=== PATIENT | female | born 1990 | race Caucasian/White ===

== ENCOUNTER 2018-10-25 16:45 | Inpatient (IN) ==
[2018-10-25] MEDS ORDERED: BETAMETHASONE ACETATE,SOD PHOS 6 MG/ML VIAL IM ONE (17:31)
[2018-10-25] MEDS: RINGER'S SOLUTION,LACTATED 1,000 ML IV PRN ×2 (17:45→19:30)
[2018-10-25] MEDS ORDERED: OXYTOCIN 20 UNITS in RINGER'S SOLUTION,LACTATED 1,000 ML IV ONE (19:14)
[2018-10-25] MEDS ORDERED: ceFAZolin SODIUM/DEXTROSE,ISO 2 GM/50 ML BAG IV ONE (19:14)
--- NOTE | 2018-10-25 20:10 | HP ---
Chief Complaint - Chief Complaint Date of Service: 10/25/18 Time of Service: 20:04 Chief Complaint: contractions History of Present Illness: 28 yo at 36 1/7 wks presents to L&D for evaluation of elevated blood pressures to rule out chronic hypertension with superimposed preeclampsia. Her blood pressures normalized and labs WNL but was noted to have contractions every 5 minutes. Contractions increased in frequency and intensity and cervix continued to change. Because fetus is ed breech will proceed with primary c/s. Medical History (Last Reviewed 10/25/18 @ 20:09 by Roque Pink DO) Body piercing Fructose malabsorption Onset Date: ~2015 Generalized anxiety disorder Onset Date: ~2011 Tx'd with Lexapro & Xanex prn. Pt d/c both medications with + UPT 04/20/18. Hypertension Onset Date: ~2015 Initially on Lisinopril but d/c due to cough. Then Irbesartan x1 yr. Pt d/c medication with + UPT. 04/20/18 Hypothyroidism Onset Date: ~10/2017 Put on thyroid medication-PCP d/c medication with +UPT (Dr. Perez) 04/20/18 Intestinal polyps Onset Date: ~2015 Pt is to have colonoscopies q 5 yrs. Strong hx with paternal aunts and uncles. Obesity Tattoos Wears glasses Abnormal Pap smear of cervix Onset Date: ~2007 Negative colpo Asthma Onset Date: ~2002 Sports induced asthma. Breast lump Onset Date: ~2013 Bilateral lumps-Fibrous tissue build up d/t the Implanon. Negative mammogram & u.s History of HIDA scan Onset Date: ~2015 Sinus arrhythmia Onset Date: ~2009 Pt states she "grew out of it." Doctors never felt she needed a work up. Surgical History: Surgical History (Last Reviewed 10/25/18 @ 20:09 by Roque Pink DO) History of colonoscopy Onset Date: ~2015 Benign polyps. Strong paternal history of intestinal polyps. History of colposcopy Onset Date: ~2007 Negative Jaw Surgery Onset Date: ~2011 Internal fixation with multiple screws and plates Normal endoscopy Onset Date: ~2015 Family History: Family History (Last Reviewed 10/25/18 @ 20:10 by Roque Pink DO) Mother Chronic Bronchial Asthma Chronic UTI Hypertension GI Issues Father Hypercholesterolemia Grandfather Hypertension Grandmother COD-Aspiration Pneumonia Grandfather Medical history unknown Grandmother COD Related to the Gastric System Other Intestinal polyps Social History: Preferred Language Bulgarian Do you have any sikhism or No cultural preference? Smoking Status Former smoker (Last Updated 10/25/18 @ 16:29 by Roque Pink DO) No Social History Section defined Review Of Systems (GEN) - Review of Systems Generalized/Overall Review: Present: No Symptoms Reported EENTM: Present: No Symptoms Reported Respiratory: Present: No Symptoms Reported Cardiac: Present: No Symptoms Reported Abdominal: Present: Other - contractions Genitourinary: Present: No Symptoms Reported Musculoskeletal: Present: No Symptoms Reported Neurological: Present: No Symptoms Reported Skin: Present: No Symptoms Reported Endocrine: Present: No Symptoms Reported Allergies/Adverse Reactions: Allergies Allergy/AdvReac Type Severity Reaction Status Date / Time lisinopril Allergy Intermediate Cough Verified 10/25/18 15:53 adhesive tape Allergy rash Verified 10/25/18 15:53 Home Medications: HOME MEDICATIONS doxylamine succinate 25 mg tablet See Rx Instructions PO .in the a.m. PRN tab 04/20/18 [Last Taken 10/24/18 21:00] vitamin,calcium,tbktmxml-nyfn-taqcp acid tablet 1 tab PO DAILY 04/20/18 [Last Taken 10/24/18 07:00] ranitidine 150 mg capsule 150 mg PO DAILY 04/20/18 [Last Taken 10/25/18 07:00] aspirin 81 mg tablet,delayed release 81 mg PO DAILY 05/18/18 [Last Taken 10/24/18 21:00] Exam - Exam Vital Signs: Vital Signs - Last Taken Temp 36.6 C 10/25/18 19:51 Pulse 101 H 10/25/18 19:51 Resp 20 10/25/18 19:51 BP 138/86 10/25/18 19:51 Pulse Ox 99 10/25/18 19:51 Constitutional: Present: Alert, Oriented x3, Cooperative ENT Exam: Present: hearing grossly normal Back Exam: Present: no CVA tenderness Breasts: Present: Exam deferred Respiratory: Present: lungs clear, no respiratory distress Cardiovascular/Chest: Present: regular rate, rhythm Abdomen: Present: nontender, no rebound tenderness, other - gravid /Rectal: Present: Other - 2-3/50/-2 Extremity: Present: no pedal edema, no calf tenderness Skin Exam: Present: normal color, warm/dry, no cyanosis Neurologic: Present: alert, normal mood/affect, oriented x 3 Appearance: Present: appropriate appearance, appropriate insight Eye contact: Present: cooperative, good eye contact, normal speech Thoughts: Present: normal thought pattern Diagnostic Studies: NST reactive CBC, CMP, and Urine prot/cr ratio not showing from computer on this note, but WNL. Assessment/Plan - Assessment/Plan (1) labor Assessment: Admit for primary LTCS due to PTL with breech presentation. R/b/a discussed with patient and partner. All questions answered. Will proceed with surgery as planned. Problem: Acute Qualifiers: labor trimester: third trimester labor delivery status: with delivery in third trimester Fetus number: single or unspecified fetus Qualified Code(s): O60.14X0 - labor third trimester with delivery third trimester, not applicable or unspecified (2) Breech presentation Problem: Acute Qualifiers: Fetus number: single or unspecified fetus Qualified Code(s): O32.1XX0 - Maternal care for breech presentation, not applicable or unspecified (3) Anxiety Problem: Chronic (4) Hypothyroid Problem: Chronic Qualifiers: Hypothyroidism type: unspecified Qualified Code(s): E03.9 - Hypothyroidism, unspecified (5) Asthma complicating , antepartum Problem: Inactive (6) Chronic hypertension during Problem: Chronic
--- NOTE | 2018-10-25 20:48 | ANES ---
Anesthesia Pre Procedure Eval Vitals/Labs: Last Vital Signs Temp 36.6 C 10/25/18 19:51 Pulse 101 H 10/25/18 19:51 Resp 20 10/25/18 19:51 BP 138/86 10/25/18 19:51 Pulse Ox 99 10/25/18 19:51 HOME MEDICATIONS doxylamine succinate 25 mg tablet See Rx Instructions PO .in the a.m. PRN tab 04/20/18 [Last Taken 10/24/18 21:00] vitamin,calcium,ijpocdyn-bjsb-shycd acid tablet 1 tab PO DAILY 04/20/18 [Last Taken 10/24/18 07:00] ranitidine 150 mg capsule 150 mg PO DAILY 04/20/18 [Last Taken 10/25/18 07:00] aspirin 81 mg tablet,delayed release 81 mg PO DAILY 05/18/18 [Last Taken 10/24/18 21:00] Allergies/Adverse Reactions: Allergies Allergy/AdvReac Type Severity Reaction Status Date / Time lisinopril Allergy Intermediate Cough Verified 10/25/18 15:53 adhesive tape Allergy rash Verified 10/25/18 15:53 - Planned Procedure Planned Procedure: Medication List Reviewed:: Yes Allergies Verified: Yes Medical History (Last Reviewed 10/25/18 @ 20:46 by Brett Porter CRNA) Body piercing Fructose malabsorption Onset Date: ~2015 Generalized anxiety disorder Onset Date: ~2011 Tx'd with Lexapro & Xanex prn. Pt d/c both medications with + UPT 04/20/18. Hypertension Onset Date: ~2015 Initially on Lisinopril but d/c due to cough. Then Irbesartan x1 yr. Pt d/c medication with + UPT. 04/20/18 Hypothyroidism Onset Date: ~10/2017 Put on thyroid medication-PCP d/c medication with +UPT (Dr. Perez) 04/20/18 Intestinal polyps Onset Date: ~2015 Pt is to have colonoscopies q 5 yrs. Strong hx with paternal aunts and uncle s. Obesity Tattoos Wears glasses Abnormal Pap smear of cervix Onset Date: ~2007 Negative colpo Asthma Onset Date: ~2002 Sports induced asthma. Breast lump Onset Date: ~2013 Bilateral lumps-Fibrous tissue build up d/t the Implanon. Negative mammogram & u.s History of HIDA scan Onset Date: ~2015 Sinus arrhythmia Onset Date: ~2009 Pt states she "grew out of it." Doctors never felt she needed a work up. Surgical History (Last Reviewed 10/25/18 @ 20:47 by Brett Porter CRNA) History of colonoscopy Onset Date: ~2015 Benign polyps. Strong paternal history of intestinal polyps. History of colposcopy Onset Date: ~2007 Negative Jaw Surgery Onset Date: ~2011 Internal fixation with multiple screws and plates Normal endoscopy Onset Date: ~2015 Family History (Last Reviewed 10/25/18 @ 20:47 by Brett Porter CRNA) Mother Chronic Bronchial Asthma Chronic UTI Hypertension GI Issues Father Hypercholesterolemia Grandfather Hypertension Grandmother COD-Aspiration Pneumonia Grandfather Medical history unknown Grandmother COD Related to the Gastric System Other Intestinal polyps - Family Anesthesia History Family History:: no untoward family reactions to anesthesia - Airway/Neck/Teeth Within Normal Limits:: Yes Teeth Condition: intact Neck Exam: full range of motion Mallampatti Score: 2 Thyromental (T-M) distance: > 6 cm Mandibulo Hyoid distance: > 3 cm - Respiratory Respiratory Physical: lungs clear Smoking Status: Former smoker Sleep Apnea currently treated: No Sleep Apnea by current assessment: No - Cardiovascular Tolerate Activity: Good Heart Sounds: S1 & S2, Regular - Anesthesia Assessment and Plan ASA Class: PS, II, E Anesthesia Type Plan: Spinal - Bilat TAP block
[2018-10-25] MEDS ORDERED: SENNOSIDES 8.6 MG TABLET PO PRN (22:17)
[2018-10-25] MEDS ORDERED: oxyCODONE HCL/ACETAMINOPHEN 1 TAB TABLET PO PRN (22:17)
[2018-10-25] MEDS ORDERED: BISACODYL 10 MG SUPP.RECT RC PRN (22:17)
[2018-10-25] MEDS ORDERED: ONDANSETRON HCL/PF 2 MG/ML VIAL IV PRN (22:17)
[2018-10-25] MEDS ORDERED: SIMETHICONE 80 MG TAB.CHEW PO PRN (22:17)
--- NOTE | 2018-10-25 22:48 | ANES ---
Post Anesthesia Discharge - Transfer of Care Transfer of Care handoff given to nurse: Yes - Discharge from PACU Discharge from PACU when meets criteria: Yes
--- NOTE | 2018-10-25 22:49 | ANES ---
Post Anesthesia Assessment - Vital Signs Vitals: Last Vital Signs Temp 36.6 C 10/25/18 19:51 Pulse 101 H 10/25/18 19:51 Resp 20 10/25/18 19:51 BP 138/86 10/25/18 19:51 Pulse Ox 99 10/25/18 19:51 Airway Patency: Normal - Mental Status Level Of Consciousness: Awake - Pain Level Pain Score: 0 - N/V Assessment Nausea/Vomiting Presence: None Dehydration:: No
--- NOTE | 2018-10-25 22:51 | OR ---
Operative Report - Dictated Report Narrative: Indication: 28-year-old 1 para 0 at 36 1/7 weeks admitted for labor with breech presentation. Status: Planned Pre Operative Diagnosis: 36 1/7 weeks intrauterine , labor, ed breech presentation Post Operative Diagnosis: Same. Procedure Preformed: Primary Low Transverse Section Surgeon: Ginny Pink DO Plastics Spreading Machine Operator: OR Staff Anesthesia: Epidural ,TAP block Estimated Blood Loss: 600 mL Urine Output: 150 mL of clear urine Fluids Given: 800 mL of crystalloid Drains: Parikh to gravity Surgical Complications: None Specimens: Placenta to freezer Findings: Female born at 2126 on 10/25/2019 with Apgars 7 and 9, weighing 3200 grams in ed breech presentation with tight nuchal cord 1. Normal uterus, tubes, ovaries. Technique: The patient was taken to the operating room and placed in dorsal carreon pine position with a left lateral tilt. After adequate epidural anesthesia, parikh catheter insertion,SCDs placed, and 2 g of Ancef given preoperatively, the abdominal cavity was entered via a modified Abhijit-Hazel incision. Two rolled laps were placed in the pericolic gutters on either side of the uterus. A transverse incision was made in the lower uterine segment and extended laterally and upwardly with digital traction. Clear fluid was noted upon amniotomy. The was lying sideways on the maternal left side and required some effort to rotate the head down to allow the buttocks to present through the hysterotomy. A wet towel was wrapped around the torso of the baby and traction was gently applied to allow the legs to deliver. The baby was rotated counterclockwise and clockwise to allow each arm to deliver. The chin caught on the lower uterine segment of the incision and required some manipulation to allow the head to stay flexed and deliver. The tight nuchal cord was unable to be reduced until after delivery of the infant. The cord was clamped and cut and infant was handed off to awaiting knot picker cloth. The placenta was allowed to deliver spontaneously. The uterus was cleared of clot and debris. Uterine incision was closed with 0 Vicryl using a running stitch. A second imbricating layer was placed. A nuhzqf-aq-rzuex stitch was placed in the left side of the incision to provide excellent hemostasis. Rolled laps were removed from the abdominal cavitiy. The peritoneum was closed with a running 3-0 Monocryl. The same suture was used to approximate the rectus and pyramidalis muscles. The fascia was closed with a running 0 Vicryl. The subcutaneous layer was closed with a running 3-0 Monocryl. The same suture was used to approximate the subdermal layer. The skin was closed with a running 4-0 Monocryl and Dermabond. Sponge, lap, needle, and instrument count were correct x 2. Disposition: The patient was transferred to post anesthesia care unit in good condition
--- NOTE | 2018-10-25 22:53 | ANES ---
Anesthesia Procedure Note Procedure Note: ANESTHESIA PROCEDURE NOTE Date of procedure: 10/25/2018. Time of procedure: 2209. Performed by: Thierno Porter CRNA Energy Assistant: Loly Macias RN . Preprocedure diagnosis: Status post section. Desire for postoperative analgesia. Post procedure diagnosis: Same. Procedure: Ultrasound-guided bilateral tap block Indications: Postoperative analgesia. Findings: Patient brought to the PACU and placed in a supine position. Patient's left abdominal wall was prepped with ChloraPrep. Ultrasound was utilized to identify fascial layer between internal oblique and trans-abdominus muscles. A 20-gauge 4 inch regional block needle was advanced under ultrasound guidance until tip of needle was positioned just superior to fascial layer. 20 mL of 0.25% Marcaine with epinephrine 1-200,000 was injected with adequate spread of local anesthesia noted. Procedure was then repeated on patient's right side. EBL: Minimal. Fluids: N/A. Specimen: N/A. Post procedure condition: The patient tolerated the procedure well. No complications were noted. Thank you for this consultation Thierno Porter CRNA
[2018-10-26] MEDS: oxyCODONE HCL/ACETAMINOPHEN 1 TAB TABLET PO PRN ×7 (00:26→21:24)
[2018-10-26] MEDS: IBUPROFEN 800 MG TABLET PO PRN ×4 (00:27→21:25)
[2018-10-26] MEDS: ENOXAPARIN SODIUM 40 MG/0.4 ML SYRG SC SCH (07:17)
[2018-10-26] MEDS: PRENATAL VITS96/IRON FUM/FOLIC 1 TAB TABLET PO SCH (09:36)
[2018-10-26] MEDS: DOCUSATE SODIUM 100 MG CAPSULE PO SCH ×2 (09:36→21:24)
--- NOTE | 2018-10-26 16:36 | PN ---
Subjective - Date and Time Seen Date: 10/26/18 Time: 16:34 Objective - Vitals Vitals: Last Vital Signs Temp 36.4 C 10/26/18 12:45 Pulse 86 10/26/18 12:45 Resp 18 10/26/18 12:45 BP 130/82 10/26/18 12:45 Pulse Ox 96 10/26/18 12:45 Patient denies complaints. Tolerating regular diet. Ambulating without difficulty. Pain well controlled. Breast feeding well Lochia wnl. Abdomen - soft, appropriately tender Incision - clean, dry, intact Uterus - firm, at umbilicus -1 No calf tenderness Impression: Post op day #1 s/p primary section for labor with breech presentation. Declined trial of external cephalic version Plan: Continue routine post-operative/ care Cauti Physician Documentation - Urinary Catheter Management Urethral ([place]) Date of Insertion: 10/25/18 Time of Insertion: 21:10 Assessment/Plan - Problems/Diagnosis (1) labor Problem: Acute Qualifiers: labor trimester: third trimester labor delivery status: with delivery in third trimester Fetus number: single or unspecified fetus Qualified Code(s): O60.14X0 - labor third trimester with delivery third trimester, not applicable or unspecified (2) Breech presentation Problem: Acute Qualifiers: Fetus number: single or unspecified fetus Qualified Code(s): O32.1XX0 - Maternal care for breech presentation, not applicable or unspecified (3) Anxiety Problem: Chronic (4) Hypothyroid Problem: Chronic Qualifiers: Hypothyroidism type: unspecified Qualified Code(s): E03.9 - Hypothyroidism, unspecified (5) Asthma complicating , antepartum Problem: Inactive (6) Chronic hypertension during Problem: Chronic
[2018-10-27] MEDS: oxyCODONE HCL/ACETAMINOPHEN 1 TAB TABLET PO PRN ×3 (00:41→15:17)
[2018-10-27] MEDS: IBUPROFEN 800 MG TABLET PO PRN ×3 (06:22→19:31)
[2018-10-27] MEDS: ENOXAPARIN SODIUM 40 MG/0.4 ML SYRG SC SCH (06:24)
--- NOTE | 2018-10-27 09:40 | PN ---
Subjective - Date and Time Seen Date: 10/27/18 Time: 09:38 Objective - Vitals Vitals: Last Vital Signs Temp 37.0 C 10/26/18 20:20 Pulse 91 10/27/18 00:48 Resp 16 10/27/18 00:48 BP 120/70 10/27/18 00:48 Pulse Ox 97 10/27/18 00:48 Patient denies complaints. Ambulating well. Tolerating regular diet. Pain well controlled. Lochia wnl. Abdomen - soft, appropriately tender Incision - clean, dry, intact Uterus - firm, at umbilicus -2 No calf tenderness Impression: Post op day #2 s/p primary section due to labor and breech presentation. Anxiety disorder-stable. Obesity. Plan: Continue routine post-operative/ care ] Cauti Physician Documentation - Urinary Catheter Management Urethral ([place]) Date of Insertion: 10/25/18 Time of Insertion: 21:10 Assessment/Plan - Problems/Diagnosis (1) labor Problem: Acute Qualifiers: labor trimester: third trimester labor delivery status: with delivery in third trimester Fetus number: single or unspecified fetus Qualified Code(s): O60.14X0 - labor third trimester with delivery third trimester, not applicable or unspecified (2) Breech presentation Problem: Acute Qualifiers: Fetus number: single or unspecified fetus Qualified Code(s): O32.1XX0 - Maternal care for breech presentation, not applicable or unspecified (3) Anxiety Problem: Chronic (4) Hypothyroid Problem: Chronic Qualifiers: Hypothyroidism type: unspecified Qualified Code(s): E03.9 - Hypothyroidism, unspecified (5) Asthma complicating , antepartum Problem: Inactive (6) Chronic hypertension during Problem: Chronic
[2018-10-27] MEDS: PRENATAL VITS96/IRON FUM/FOLIC 1 TAB TABLET PO SCH (10:13)
[2018-10-27] MEDS: DOCUSATE SODIUM 100 MG CAPSULE PO SCH ×2 (10:13→20:35)
[2018-10-28] MEDS: oxyCODONE HCL/ACETAMINOPHEN 1 TAB TABLET PO PRN (01:15)
[2018-10-28] MEDS: IBUPROFEN 800 MG TABLET PO PRN ×2 (05:48→12:52)
[2018-10-28] MEDS: ENOXAPARIN SODIUM 40 MG/0.4 ML SYRG SC SCH (08:11)
[2018-10-28 09:03] VITALS: BP 136/89
--- NOTE | 2018-10-28 11:00 | PN ---
Subjective - Date and Time Seen Date: 10/28/18 Time: 10:51 Objective - Review of Systems Generalized/Overall Review: Reports: No Symptoms Reported Respiratory: Reports: No Symptoms Reported Cardiac: Reports: No Symptoms Reported Abdominal: Reports: No Symptoms Reported, Abdominal Pain Genitourinary Symptoms: Reports: No Symptoms Reported Musculoskeletal Complaints: Reports: No Symptoms Reported Neurological: Reports: No Symptoms Reported Skin: Reports: No Symptoms Reported Endocrine: Reports: No Symptoms Reported - Vitals Vitals: Last Vital Signs Temp 36.6 C 10/28/18 08:00 Pulse 100 10/28/18 08:00 Resp 18 10/28/18 08:00 BP 136/89 10/28/18 08:00 Pulse Ox 100 10/28/18 08:00 - Exam Constitutional: Present: Alert, Oriented x3, Cooperative Neck: Present: non-tender Breasts: Present: Exam deferred Respiratory: Present: normal breath sounds, no respiratory distress Cardiovascular/Chest: Present: other - trace edema Abdomen: Present: soft, nontender, obese, other - incision C/D/I /Rectal: Present: Exam deferred Extremity: Present: normal range of motion Skin Exam: Present: warm/dry Appearance: Present: appropriate appearance Eye contact: Present: cooperative Thoughts: Present: normal thought pattern Cauti Physician Documentation - Urinary Catheter Management Urethral ([place]) Date of Insertion: 10/25/18 Time of Insertion: 21:10 Assessment/Plan Plan Narrative: POD #3 Doing well, Stable, afebrile Routine postop care D/c home today FU in 2 weeks, sooner prn. - Problems/Diagnosis (1) (infant) Problem: Acute (2) Breech presentation Problem: Acute Qualifiers: Fetus number: single or unspecified fetus Qualified Code(s): O32.1XX0 - Maternal care for breech presentation, not applicable or unspecified (3) Delivery by section for breech presentation Problem: Acute (4) labor Problem: Acute Qualifiers: labor trimester: third trimester labor delivery status: with delivery in third trimester Fetus number: single or unspecified fetus Qualified Code(s): O60.14X0 - labor third trimester with delivery third trimester, not applicable or unspecified (5) Anxiety Problem: Chronic (6) Chronic hypertension during Problem: Chronic (7) Hypothyroid Problem: Chronic Qualifiers: Hypothyroidism type: unspecified Qualified Code(s): E03.9 - Hypothyroidism, unspecified (8) Asthma complicating , antepartum Problem: Inactive
[2018-10-28] MEDS: DOCUSATE SODIUM 100 MG CAPSULE PO SCH (11:25)
[2018-10-28] MEDS: PRENATAL VITS96/IRON FUM/FOLIC 1 TAB TABLET PO SCH (11:25)
--- NOTE | 2018-11-06 15:19 | PN ---
Progess Note - Interim Date: 11/06/18 Time: 15:18 History for MU Definition: * The number of deliveries resulting in a live the patient experienced prior to current hospitalization * The previous delivery of live twins or any live multiple gestation is considered one live event. *If primagravida or nulliparous is documented select zero for the number of previous live births. Live Events: 0
== END 2018-10-28 15:50 | disposition home or self-care (01) | DRG 786 ==
LOC: OBCLINIC 16:45 → OB 19:08
PROVIDERS: ADMIT Obstetrics & Gynecology; ATTEND Obstetrics & Gynecology
CPT/HCPCS: 59025; 64486; 87081